=== PATIENT | female | born 1965 | race Caucasian/White ===

== ENCOUNTER 2016-09-07 11:19 | Emergency (ER) | payer MEDICARE, OTHER ==
[~2016-09-07] VITALS: Ht 175.3 cm; Wt 114.0 kg
[~2016-09-07 11:19] MED LIST: ALBU8.5H3 INH; APIX5TAB PO; ASPI325T4 PO; BACL10TA PO; CLON1TAB3 PO; CYAN100080 PO; DOCU100C PO; GABA-528 PO; IBUP-1542 PO; MAGN250T5 PO; MULT-761 PO; OXYB5TAB7 PO
[2016-09-07 11:25] VITALS: Ht 175.3 cm; Wt 114.0 kg
[2016-09-07] MEDS ORDERED: SILVER SULFADIAZINE 1% 25 GM CR TOP ONE (12:30)
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
[2016-09-07] MEDS ORDERED: SLSL1C50 TOP (12:33)
== END 2016-09-07 12:51 | disposition home or self-care (01) ==
LOC: FTE 11:19
DX: T22.211A Burn of second degree of right forearm, initial encounter (principal); J44.9 Chronic obstructive pulmonary disease, unspecified; F17.210 Nicotine dependence, cigarettes, uncomplicated; X19.XXXA Contact with other heat and hot substances, initial encounter; Y92.9 Unspecified place or not applicable; Z79.01 Long term (current) use of anticoagulants

== ENCOUNTER → 2018-05-11 | Emergency (ER) | END | disposition home or self-care (01) ==

== ENCOUNTER 2018-05-12 18:18 | Emergency (ER) | END 2018-05-12 22:30 | disposition home or self-care (01) ==

== ENCOUNTER 2018-10-23 08:12 | Inpatient (IN) | payer MEDICARE, OTHER ==
[~2018-10-23] VITALS: Ht 175.3 cm; Wt 91.0 kg
[~2018-10-23 08:12] MED LIST changes: -ALBU8.5H3 INH; +ALBU8.5H8 INH; -ASPI325T4 PO; -CLON1TAB3 PO; +DOCU-211 PO; -DOCU100C PO; +MAGN250T10 PO; -MAGN250T5 PO; +NALO25TA PO; +POLY17PO6 PO; +POTA20TA15 PO; +SAN30GM TOP; +SLSL1C50 TOP
[2018-10-23] MEDS ORDERED: SOD CHLORIDE 0.9% 500 ML IV STA (08:56)
[2018-10-23] MEDS ORDERED: LORAZEPAM 2 MG INJ IM ONE (09:00)
[2018-10-23] MEDS ORDERED: BISACODYL 10 MG SUPP PR SCH (09:00)
--- NOTE | 2018-10-23 09:06 | ERD ---
ER Documentation Chief Complaint Chief Complaint WOUND CHECK AND GENERALIZED PAIN WITH NO SIGNS OF FEVER. HPI 53-year-old woman brought in by EMS from home for agitation, anxiety and diffuse generalized pain. She does have a long history of anxiety syndrome and states she could not go to the wound clinic appointment she had because of anxiety. She has had recent left hip surgery and it seems has a history of chronic sacral pressure ulcers and was due wound clinic today but never went. She called 911 to transfer her here to the ER for evaluation. Patient denies fevers or chills, no chest pain or shortness of breath, no headache or blurry vision. Patient was transported here by EMS without further complications. ROS All systems reviewed and are negative except as per history of present illness. Medications Home Meds Active Scripts Silver Sulfadiazine* (Thermazene*) 1%-50 gm Cream..g., 1 APPLIC TOP DAILY, #1 JAR Prov:JONA STRICKLAND DO 09/07/16 Ibuprofen* (Motrin*) 600 Mg Tab, 600 MG PO Q8 for PAIN AND/OR INFLAMMATION, #30 TAB Prov:DANIEL JONES MD 03/09/16 Albuterol Sulfate* (Proair HFA*) 8.5 Gm Hfa.aer.ad, 2 PUFF INH Q4 for 14 Days, INH Prov:DEVANTE MORALES MD 03/31/15 Reported Medications Atorvastatin Calcium* (Atorvastatin Calcium*) 20 Mg Tablet, 20 MG PO QHS, #30 TAB 10/23/18 Polyethylene Glycol* (Miralax*) 17 Gm Powd.pack, 8.5 GM PO DAILY, #30 PACKET 05/11/18 Potassium Chloride* (K-Dur*) 20 Meq Tab.prt.sr, 20 MEQ PO DAILY, TAB.SA 05/11/18 Collagenase* (Santyl*) 30 Gm Oint..gm., 1 APPLIC TOP .SOILED PRN for SOILED, #1 TUB 05/11/18 Naloxegol Oxalate (Movantik) 25 Mg Tablet, 25 MG PO DAILY, TAB 05/11/18 Apixaban* (Eliquis*) 5 Mg Tablet, 5 MG PO BID, TAB 03/09/16 Baclofen* (Baclofen*) 10 Mg Tablet, 10 MG PO QID, TAB 07/28/14 Multivitamin (MULTI VITAMIN DAILY) 1 Each Tablet, 1 EACH PO DAILY 06/15/13 Magnesium Oxide (Magnesium) 250 Mg Tablet, 250 MG PO DAILY 06/15/13 Oxybutynin Chloride* (Ditropan*) 5 Mg Tablet, 5 MG PO QID 02/02/13 Cyanocobalamin* (Vitamin B-12*) 1,000 Mcg Tablet.sa, 1000 MCG PO DAILY 07/22/12 Docusate Sodium (Doc-Q-Lace) 100 Mg Capsule, 100 MG PO BID 07/22/12 Gabapentin* (Gabapentin*) 800 Mg Tablet, 800 MG PO QID 07/22/12 Allergies Allergies: Coded Allergies: No Known Drug Allergies (Unverified Allergy, Mild, 05/11/18) PMhx/Soc Chronic pain syndrome, anxiety, morbid obesity, recent left hip surgery, 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 History of Surgery: Yes (pacemaker, NECK, BLADDER) Anesthesia Reaction: No Hx Neurological Disorder: Yes (Paraplegic) Hx Respiratory Disorders: Yes (COPD) Hx Cardiac Disorders: Yes (irregular HR) Hx Psychiatric Problems: No Hx Miscellaneous Medical Probl: Yes (suprapubic cath 01/2013) Hx Alcohol Use: No Hx Substance Use: No Hx Tobacco Use: Yes Smoking Status: Never smoker FmHx Family History: No diabetes Physical Exam Vitals Vital Signs Date Temp Pulse Resp B/P (MAP) Pulse Ox O2 O2 Flow FiO2 Time Delivery Rate 10/23/18 97.8 75 20 165/60 95 08:22 (95) Physical Exam General: Well-developed, obese woman, moderately anxious, afebrile Head: Normocephalic, atraumatic. Eyes: Pupils equally reactive, EOM intact ENT: Moist mucous membranes Neck: Supple, no lymphadenopathy Respiratory: Lungs clear bilaterally, no distress Cardiovascular: RRR, no murmurs, rubs, or gallops Abdominal: Soft, non-tender, non-distended, no peritoneal signs SKIN: Surgical wound to the left lateral hip appears clean and dry with sutures in place, no skin induration or erythema, no purulent discharge. Patient refused further evaluation of her skin and back and gave me a tang "NO" when asked to evaluate her back. MSK: Incomplete quadriplegic, moving upper extremities at baseline Neurologic: Patient moves her upper extremities bilaterally, pupils equal round reactive to light, answering questions, following commands Psych: Moderately anxious, labile Result Diagram: 10/23/1892210/23/18922 Results 24 hrs Laboratory Tests Test 10/23/18 09:23 White Blood Count 7.5 10^3/ul Red Blood Count 5.19 10^6/ul Hemoglobin 12.7 g/dl Hematocrit 40.8 % Mean Corpuscular Volume 78.6 fl Mean Corpuscular Hemoglobin 24.5 pg Mean Corpuscular Hemoglobin Concent 31.1 g/dl Red Cell Distribution Width 15.7 % Platelet Count 253 10^3/UL Mean Platelet Volume 11.0 fl Immature Granulocytes % 0.400 % Neutrophils % 80.1 % Lymphocytes % 14.5 % Monocytes % 4.3 % Eosinophils % 0.3 % Basophils % 0.4 % Nucleated Red Blood Cells % 0.0 /100WBC Immature Granulocytes # 0.030 10^3/ul Neutrophils # 6.0 10^3/ul Lymphocytes # 1.1 10^3/ul Monocytes # 0.3 10^3/ul Eosinophils # 0.0 10^3/ul Basophils # 0.0 10^3/ul Nucleated Red Blood Cells # 0.0 10^3/ul Urine Color YELLOW Urine Clarity SLIGHTLY CLOUDY Urine pH 8.0 Urine Specific [place] 1.010 Urine Ketones NEGATIVE mg/dL Urine Nitrite POSITIVE mg/dL Urine Bilirubin NEGATIVE mg/dL Urine Urobilinogen NEGATIVE mg/dL Urine Leukocyte Esterase 3+ Rios/ul Urine Microscopic RBC 4 /HPF Urine Microscopic WBC 97 /HPF Urine Squamous Epithelial Cells FEW /HPF Urine Bacteria FEW /HPF Urine Hemoglobin 1+ mg/dL Urine Glucose NEGATIVE mg/dL Urine Total Protein NEGATIVE mg/dl Sodium Level 143 mmol/L Potassium Level 3.6 mmol/L Chloride Level 102 mmol/L Carbon Dioxide Level 28 mmol/L Anion Gap 13 Blood Urea Nitrogen 7 mg/dl Creatinine 0.43 mg/dl Est Glomerular Filtrat Rate mL/min > 60 mL/min Glucose Level 97 mg/dl Calcium Level 9.6 mg/dl Total Bilirubin 0.1 mg/dl Direct Bilirubin 0.00 mg/dl Indirect Bilirubin 0.1 mg/dl Aspartate Amino Transf (AST/SGOT) 24 IU/L Alanine Aminotransferase (ALT/SGPT) 19 IU/L Alkaline Phosphatase 125 IU/L Troponin I 0.012 ng/ml Total Protein 7.3 g/dl Albumin 3.8 g/dl Globulin 3.50 g/dl Albumin/Globulin Ratio 1.08 Lipase 153 U/L Current Medications Medications Dose Sig/Amanuel Start Time Status Last (Trade) Ordered Route PRN Stop Time Admin Dose Reason Admin Sodium 500 ml @ Q1H STAT 10/23/18 DC 10/23/18 Chloride 500 mls/hr IV 08:56 09:03 10/23/18 09:55 Lorazepam 2 mg ONCE ONCE 10/23/18 DC 10/23/18 (Ativan) IM 09:00 09:02 10/23/18 09:01 Cefepime HCl 50 ml @ ONCE ONCE 10/23/18 DC 10/23/18 100 mls/hr IVPB 10:00 10:10 10/23/18 10:29 Procedures/MDM IV line was established patient was placed on manager monitoring rhythm strip revealed a sinus rhythm at about 80 bpm with upright P and T waves. Patient was afebrile I administered lorazepam 2 mg IM x1 for acute anxiety, and 500 cc normal saline IV for dehydration. CBC and electrolytes were unremarkable, troponin negative, liver function tests normal, urine analysis positive for infection. I administered cefepime 1 g IV for UTI. Patient will be admitted to [facility] for continued medical management, antibiotic, and wound evaluation. Departure Diagnosis: Primary Impression: Acute UTI Additional Impressions: Acute anxiety Decubitus skin ulcer Pressure injury location: lower back Pressure injury stage: unspecified pressure injury stage Laterality: left Qualified Codes: L89.149 - Pressure ulcer of left lower back, unspecified stage Condition: DANIEL Briones MD Oct 23, 2018 09:06
[2018-10-23] MEDS ORDERED: ATOR20TA38 PO (09:24)
[2018-10-23] MEDS ORDERED: CEFEPIME 1GM/50 ML (PMX) 50 ML IVPB ONE (10:00)
[2018-10-23 18:03] VITALS: Ht 175.3 cm; Wt 91.0 kg
[2018-10-23 18:35] VITALS: BP 170/81; PULSE 93; RESP 17
[2018-10-23] MEDS ORDERED: LORAZEPAM 2 MG INJ IV PRN (19:00)
[2018-10-23] MEDS ORDERED: ACETAMINOPHEN 325 MG TAB PO PRN (19:00)
[2018-10-23 20:23] VITALS: BP 159/79; PULSE 70; RESP 18
[2018-10-23] MEDS: HYDROmorphONE 0.5 MG/0.5 ML SYG IV PRN (20:53)
[2018-10-23] MEDS ORDERED: NON-FORMULARY/PATIENT OWN MED (Naloxegol Oxalate (Movantik) 25 MG) PO SCH (21:00)
[2018-10-23] MEDS ORDERED: COLLAGENASE 30 GM TUBE TOP PRN (21:00)
[2018-10-23] MEDS: MEROPENEM 1 GM/50ML(PMX) 50 ML IVPB SCH (21:55)
[2018-10-23] MEDS: MAGNESIUM OXIDE 400 MG TAB PO SCH (21:56)
[2018-10-23] MEDS: ATORVASTATIN 20 MG TAB PO SCH (21:56)
[2018-10-23] MEDS: GABAPENTIN 400 MG CAP PO SCH (21:56)
[2018-10-23] MEDS: BACLOFEN 10 MG TAB PO SCH (21:56)
[2018-10-23] MEDS: DOCUSATE SODIUM 100 MG CAP PO SCH (21:57)
[2018-10-23] MEDS: IBUPROFEN 600 MG TAB PO SCH (21:57)
[2018-10-23] MEDS: APIXABAN 5 MG TABLET PO SCH (21:58)
[2018-10-23] MEDS: POTASSIUM CHLORIDE 20 MEQ POWDER FOR ORAL SOLN PO SCH (21:58)
[2018-10-23] MEDS ORDERED: POLYETHYLENE GLYCOL 17 GM PACKET PO SCH (22:00)
[2018-10-23] MEDS: OXYBUTYNIN 5 MG TAB PO SCH (22:42)
[2018-10-23] MEDS: HYDROCODONE/APAP (5/325) TAB PO PRN (22:43)
[2018-10-23] MEDS: MULTIVITAMINS THERAPEUTIC TAB PO SCH (22:43)
[2018-10-23] MEDS: QUETIAPINE 100 MG TAB PO SCH (22:44)
[2018-10-23] MEDS: CYANOCOBALAMIN 500 MCG TAB PO SCH (22:44)
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
[2018-10-24 02:01] VITALS: BP 126/81; PULSE 70; RESP 18
[2018-10-24] MEDS: MEROPENEM 1 GM/50ML(PMX) 50 ML IVPB SCH ×3 (05:42→21:47)
[2018-10-24] MEDS: IBUPROFEN 600 MG TAB PO SCH ×3 (05:44→21:50)
[2018-10-24 08:14] VITALS: BP 184/113; PULSE 70; RESP 18
[2018-10-24] MEDS: MULTIVITAMINS THERAPEUTIC TAB PO SCH (08:35)
[2018-10-24] MEDS: MAGNESIUM OXIDE 400 MG TAB PO SCH (08:35)
[2018-10-24] MEDS: APIXABAN 5 MG TABLET PO SCH ×2 (08:35→20:50)
[2018-10-24] MEDS: CYANOCOBALAMIN 500 MCG TAB PO SCH (08:35)
[2018-10-24] MEDS: DOCUSATE SODIUM 100 MG CAP PO SCH ×2 (08:35→20:50)
[2018-10-24] MEDS: BACLOFEN 10 MG TAB PO SCH ×4 (08:35→21:46)
[2018-10-24] MEDS: GABAPENTIN 400 MG CAP PO SCH ×4 (08:36→21:46)
[2018-10-24] MEDS: POTASSIUM CHLORIDE 20 MEQ POWDER FOR ORAL SOLN PO SCH (08:39)
[2018-10-24] MEDS: OXYBUTYNIN 5 MG TAB PO SCH ×3 (08:39→20:49)
[2018-10-24] MEDS: SILVER SULFADIAZINE 1% 25 GM CR TOP SCH (08:41)
[2018-10-24] MEDS: HYDROmorphONE 0.5 MG/0.5 ML SYG IV PRN ×3 (08:44→20:51)
[2018-10-24] MEDS ORDERED: ENOXAPARIN 40 MG/0.4 ML SYG SC SCH (09:00)
[2018-10-24] MEDS ORDERED: hydrALAzine 20 MG INJ IV PRN (09:30)
[2018-10-24 09:53] VITALS: BP 125/85; PULSE 71
[2018-10-24] MEDS: HYDROCODONE/APAP (5/325) TAB PO PRN ×2 (11:23→22:43)
[2018-10-24] MEDS: POLYETHYLENE GLYCOL 17 GM PACKET PO SCH ×3 (14:00→21:00)
[2018-10-24] MEDS: METOPROLOL 50 MG TAB PO SCH ×2 (14:17→20:50)
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
[2018-10-24] MEDS ORDERED: BISACODYL 10 MG SUPP PR SCH (19:00)
[2018-10-24 19:36] VITALS: BP 127/82; PULSE 70; RESP 16
[2018-10-24] MEDS: ATORVASTATIN 20 MG TAB PO SCH (20:50)
[2018-10-24] MEDS: QUETIAPINE 100 MG TAB PO SCH (22:41)
[2018-10-25 01:46] VITALS: BP 123/69; PULSE 70; RESP 16
[2018-10-25] MEDS: IBUPROFEN 600 MG TAB PO SCH ×3 (05:41→22:00)
[2018-10-25] MEDS: MEROPENEM 1 GM/50ML(PMX) 50 ML IVPB SCH ×3 (05:42→22:19)
[2018-10-25 07:55] VITALS: BP 129/86; PULSE 70; RESP 18
[2018-10-25] MEDS: MULTIVITAMINS THERAPEUTIC TAB PO SCH (08:53)
[2018-10-25] MEDS: DOCUSATE SODIUM 100 MG CAP PO SCH ×2 (08:53→20:23)
[2018-10-25] MEDS: MAGNESIUM OXIDE 400 MG TAB PO SCH (08:53)
[2018-10-25] MEDS: HYDROmorphONE 0.5 MG/0.5 ML SYG IV PRN ×3 (08:53→22:04)
[2018-10-25] MEDS: POLYETHYLENE GLYCOL 17 GM PACKET PO SCH ×4 (08:53→20:28)
[2018-10-25] MEDS: POTASSIUM CHLORIDE 20 MEQ POWDER FOR ORAL SOLN PO SCH (08:53)
[2018-10-25] MEDS: CYANOCOBALAMIN 500 MCG TAB PO SCH (08:53)
[2018-10-25] MEDS: APIXABAN 5 MG TABLET PO SCH ×2 (08:54→20:24)
[2018-10-25] MEDS: OXYBUTYNIN 5 MG TAB PO SCH ×3 (08:54→20:23)
[2018-10-25] MEDS: BACLOFEN 10 MG TAB PO SCH ×4 (08:54→20:24)
[2018-10-25] MEDS: GABAPENTIN 400 MG CAP PO SCH ×4 (08:54→20:23)
[2018-10-25] MEDS: METOPROLOL 50 MG TAB PO SCH ×2 (08:55→20:26)
[2018-10-25] MEDS: SILVER SULFADIAZINE 1% 25 GM CR TOP SCH (09:00)
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
[2018-10-25] MEDS: HYDROCODONE/APAP (5/325) TAB PO PRN ×2 (10:14→20:24)
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
[2018-10-25 14:26] VITALS: BP 146/81; PULSE 70; RESP 18
--- NOTE | 2018-10-25 16:31 | CONS ---
DATE OF ADMISSION: 10/23/2018 DATE OF CONSULTATION: 10/25/2018 TYPE OF CONSULTATION: Infectious disease. REASON FOR CONSULTATION: Antibiotic management. HISTORY OF PRESENT ILLNESS: Hallie Cabral is a 53-year-old female who was brought in by EMS from [facility] for agitation and diffuse generalized pain. The patient has a long history of anxiety disorder a nd cannot go to the wound clinic appointment that she had because of anxiety. She has had recent lef t hip surgery and history of chronic sacral pressure ulcers and was scheduled for the wound clinic bu t never went. The patient denies fever or chills. Her past surgical problems include status post pa lawrence. She had neck surgery and bladder surgery. 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 The patient is bed-bound. She has arthritis, COPD and history of deep vein th rombophlebitis. She also has an irregular heart rate. As noted, the patient is paraplegic. She has suprapubic catheter that was placed in 01/2013. PAST MEDICAL HISTORY: Operations as outlined. FAMILY HISTORY: Noncontributory. SOCIAL HISTORY: She is not an everyday smoker. She does not drink or abuse drugs. ALLERGIES: NONE TO PENICILLIN, SULFA OR FOODS. MEDICATIONS: Per chart. REVIEW OF SYSTEMS: Noncontributory. LABORATORY DATA: On admission, white count was 7.5, H and H of 12.7 and 40.8, platelet count 253,000 . BUN and creatinine is 7/0.43. HOSPITAL COURSE AND PLAN: She has a suprapubic catheter. She has probable urinary tract infection a nd is currently on meropenem. She is on Eliquis. She is on Ditropan. PHYSICAL EXAMINATION: GENERAL: She is awake, responsive, in no acute distress. VITAL SIGNS: Stable. She is afebrile. SKIN: Without generalized rash. HEENT: Within normal limits. NECK: Supple. LYMPH NODES: None palpable. CHEST: Decreased breath sounds at the bases. HEART: Irregularly irregular rhythm. ABDOMEN: Soft and nontender. GENITOURINARY: She has suprapubic catheter. EXTREMITIES: She has bilateral edema. Bilateral distal lower extremities have dressings. She has a left foot wound. The patient has intact sutures. No evidence of any surrounding cellulitis or infe ction involving the left hip or the left foot. RECTAL AND GENITAL: Deferred. NEUROLOGICAL: The patient is essentially quadriplegic. She has muscle atrophy in both upper and low er extremities. IMPRESSION AND PLAN: Hallie Cabral is a 53-year-old female with numerous problems and currently, s he is being treated for urinary tract infection. We are going to await the urine culture. I will di ctate my findings to Dr. Jean and to nurse practitioner, Nick. Dictated By: JUAN HURTADO MD, JD/YVETTE Conf#: [id number] DID#: [id number] CC: JOZEF JEAN MD; MICHAEL MELCHOR NP;*[facility]*
[2018-10-25 20:16] VITALS: BP 87/64; PULSE 70; RESP 17
[2018-10-25] MEDS: QUETIAPINE 100 MG TAB PO SCH (20:23)
[2018-10-25] MEDS: ATORVASTATIN 20 MG TAB PO SCH (20:24)
[2018-10-26 02:06] VITALS: BP 132/77; PULSE 70; RESP 18
[2018-10-26] MEDS: MEROPENEM 1 GM/50ML(PMX) 50 ML IVPB SCH (05:45)
[2018-10-26] MEDS: HYDROmorphONE 0.5 MG/0.5 ML SYG IV PRN ×3 (05:55→16:51)
[2018-10-26] MEDS: IBUPROFEN 600 MG TAB PO SCH ×2 (06:00→12:50)
[2018-10-26] MEDS: MAGNESIUM OXIDE 400 MG TAB PO SCH (09:34)
[2018-10-26] MEDS: GABAPENTIN 400 MG CAP PO SCH ×3 (09:34→16:51)
[2018-10-26] MEDS: DOCUSATE SODIUM 100 MG CAP PO SCH (09:35)
[2018-10-26] MEDS: OXYBUTYNIN 5 MG TAB PO SCH ×2 (09:35→12:50)
[2018-10-26] MEDS: BACLOFEN 10 MG TAB PO SCH ×3 (09:35→16:51)
[2018-10-26] MEDS: APIXABAN 5 MG TABLET PO SCH (09:35)
[2018-10-26] MEDS: POTASSIUM CHLORIDE 20 MEQ POWDER FOR ORAL SOLN PO SCH (09:35)
[2018-10-26] MEDS: CYANOCOBALAMIN 500 MCG TAB PO SCH (09:36)
[2018-10-26] MEDS: POLYETHYLENE GLYCOL 17 GM PACKET PO SCH ×2 (09:36→12:50)
[2018-10-26] MEDS: SILVER SULFADIAZINE 1% 25 GM CR TOP SCH (09:37)
[2018-10-26] MEDS: METOPROLOL 50 MG TAB PO SCH (09:37)
[2018-10-26] MEDS: MULTIVITAMINS THERAPEUTIC TAB PO SCH (09:37)
[2018-10-26] MEDS: HYDROCODONE/APAP (5/325) TAB PO PRN (09:53)
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
[2018-10-26] MEDS ORDERED: AMIKACIN 500 MG in DEXTROSE 5% 100 ML IVPB STA (11:54)
[2018-10-26 14:30] VITALS: BP 140/79; PULSE 74; RESP 18
--- NOTE | 2018-10-26 14:40 | PDOCDIS ---
Discharge Instructions ACTIVITY: [id number] Activity Restrictions: [id number] Slowly Increase Activity Rest between Activity Avoid heavy lifting Do not operate Machinery Do not operate Power Tool Avoid Heavy Housework [id number] Bathing Restrictions: [id number] Sponge Bath FOLLOW UP/APPOINTMENTS Follow-up Plan Fu with PMD x 1 week Call 911 or go to the nearest hospital if symptoms get worse-patient verbalized understanding discharge instructions. staff ANDRÉS TAMAYO Oct 26, 2018 14:40
--- NOTE | 2018-10-26 14:43 | DS ---
Date/Time of Note Date/Time of Note DATE: 10/26/18 TIME: 14:43 Discharge Summary Admission/Discharge Info Admit Date/Time Oct 25, 2018 at 14:20 Discharge Date/Time Home Meds Active Scripts Silver Sulfadiazine* (Thermazene*) 1%-50 gm Cream..g., 1 APPLIC TOP DAILY, #1 JAR Prov:JONA STRICKLAND DO 09/07/16 Ibuprofen* (Motrin*) 600 Mg Tab, 600 MG PO Q8 for PAIN AND/OR INFLAMMATION, #30 TAB Prov:DANIEL JONES MD 03/09/16 Albuterol Sulfate* (Proair HFA*) 8.5 Gm Hfa.aer.ad, 2 PUFF INH Q4 for 14 Days, INH Prov:DEVANTE MORALES MD 03/31/15 Reported Medications Atorvastatin Calcium* (Atorvastatin Calcium*) 20 Mg Tablet, 20 MG PO QHS, #30 TAB 10/23/18 Polyethylene Glycol* (Miralax*) 17 Gm Powd.pack, 8.5 GM PO DAILY, #30 PACKET 05/11/18 Potassium Chloride* (K-Dur*) 20 Meq Tab.prt.sr, 20 MEQ PO DAILY, TAB.SA 05/11/18 Collagenase* (Santyl*) 30 Gm Oint..gm., 1 APPLIC TOP .SOILED PRN for SOILED, #1 TUB 05/11/18 Naloxegol Oxalate (Movantik) 25 Mg Tablet, 25 MG PO DAILY, TAB 05/11/18 Apixaban* (Eliquis*) 5 Mg Tablet, 5 MG PO BID, TAB 03/09/16 Baclofen* (Baclofen*) 10 Mg Tablet, 10 MG PO QID, TAB 07/28/14 Multivitamin (MULTI VITAMIN DAILY) 1 Each Tablet, 1 EACH PO DAILY 06/15/13 Magnesium Oxide (Magnesium) 250 Mg Tablet, 250 MG PO DAILY 06/15/13 Oxybutynin Chloride* (Ditropan*) 5 Mg Tablet, 5 MG PO QID 02/02/13 Cyanocobalamin* (Vitamin B-12*) 1,000 Mcg Tablet.sa, 1000 MCG PO DAILY 07/22/12 Docusate Sodium (Doc-Q-Lace) 100 Mg Capsule, 100 MG PO BID 07/22/12 Gabapentin* (Gabapentin*) 800 Mg Tablet, 800 MG PO QID 07/22/12 Follow-up Plan Fu with PMD x 1 week Call 911 or go to the nearest hospital if symptoms get worse-patient verbalized understanding discharge instructions. dw staff Primary Care Provider Not On Staff Doctor ANDRÉS TAMAYO Oct 26, 2018 14:43
== END 2018-10-26 19:20 | disposition home or self-care (01) | DRG 592 ==
LOC: E/R 08:12 → 2NE 10:28 → OBSVTOIN 10-25 14:20
PROVIDERS: ADMIT Internal Medicine; ATTEND Internal Medicine
DX: L89.149 Pressure ulcer of left lower back, unspecified stage (principal); G82.50 Quadriplegia, unspecified; N39.0 Urinary tract infection, site not specified; F41.9 Anxiety disorder, unspecified; R45.1 Restlessness and agitation; G89.4 Chronic pain syndrome; E86.0 Dehydration; Z79.02 Long term (current) use of antithrombotics/antiplatelets; N31.9 Neuromuscular dysfunction of bladder, unspecified; Z93.50 Unspecified cystostomy status; Z86.718 Personal history of other venous thrombosis and embolism; N32.89 Other specified disorders of bladder
CPT/HCPCS: 36415; 80048; 80053; 81001; 83690; 84484; 85025; 87040; 87086; 96372; 96374; G0378; J0278; J0692; J1170; J2060; J2185; J7040

== ENCOUNTER 2018-11-01 02:59 | Emergency (ER) | payer MEDICARE, OTHER ==
[~2018-11-01] VITALS: Ht 176.5 cm; Wt 100.0 kg
[~2018-11-01 02:59] MED LIST changes: +ATOR20TA38 PO
[2018-11-01 03:10] VITALS: Ht 176.5 cm; Wt 100.0 kg
--- NOTE | 2018-11-01 03:17 | ERD ---
ER Documentation Chief Complaint Chief Complaint BIB [id number],from home,c/o back pain,out of morphine pills,hx paraplegia HPI The patient is a 53-year-old female, presenting to the ER wants a pain shot. He ran out of her morphine and Dilaudid for the last 3 days and unable to contact her pain management doctor. He denies fever, chills, neck pain, chest pain, dyspnea, abdominal pain, vomiting, suicidal/homicidal ideation, visual/auditory hallucination. She smokes, nonambulatory Past medical history: Paraplegia, dyslipidemia, CAD, depression, anxiety, history of left hip and sacral pressure ulcer Past surgical history: Pacemaker, left hip arthroscopy, neck and back surgery ROS All systems reviewed and are negative except as per history of present illness. Medications Home Meds Discontinued Reported Medications Atorvastatin Calcium* (Atorvastatin Calcium*) 20 Mg Tablet, 20 MG PO QHS, #30 TAB 10/23/18 Polyethylene Glycol* (Miralax*) 17 Gm Powd.pack, 8.5 GM PO DAILY, #30 PACKET 05/11/18 Potassium Chloride* (K-Dur*) 20 Meq Tab.prt.sr, 20 MEQ PO DAILY, TAB.SA 05/11/18 Collagenase* (Santyl*) 30 Gm Oint..gm., 1 APPLIC TOP .SOILED PRN for SOILED, #1 TUB 05/11/18 Naloxegol Oxalate (Movantik) 25 Mg Tablet, 25 MG PO DAILY, TAB 05/11/18 Apixaban* (Eliquis*) 5 Mg Tablet, 5 MG PO BID, TAB 03/09/16 Baclofen* (Baclofen*) 10 Mg Tablet, 10 MG PO QID, TAB 07/28/14 Multivitamin (MULTI VITAMIN DAILY) 1 Each Tablet, 1 EACH PO DAILY 06/15/13 Magnesium Oxide (Magnesium) 250 Mg Tablet, 250 MG PO DAILY 06/15/13 Oxybutynin Chloride* (Ditropan*) 5 Mg Tablet, 5 MG PO QID 02/02/13 Cyanocobalamin* (Vitamin B-12*) 1,000 Mcg Tablet.sa, 1000 MCG PO DAILY 07/22/12 Docusate Sodium (Doc-Q-Lace) 100 Mg Capsule, 100 MG PO BID 07/22/12 Gabapentin* (Gabapentin*) 800 Mg Tablet, 800 MG PO QID 07/22/12 Discontinued Scripts Silver Sulfadiazine* (Thermazene*) 1%-50 gm Cream..g., 1 APPLIC TOP DAILY, #1 JAR Prov:JONA STRICKLAND 09/07/16 Ibuprofen* (Motrin*) 600 Mg Tab, 600 MG PO Q8 for PAIN AND/OR INFLAMMATION, #30 TAB Prov:DANIEL JONES MD 03/09/16 Albuterol Sulfate* (Proair HFA*) 8.5 Gm Hfa.aer.ad, 2 PUFF INH Q4 for 14 Days, INH Prov:DEVANTE MORALES MD 03/31/15 Allergies Allergies: Coded Allergies: No Known Allergy (Unverified , 11/01/18) PMhx/Soc History of Surgery: Yes (neck, bed sore bilateral heel, plastic surgery ,) Anesthesia Reaction: No Hx Neurological Disorder: No Hx Respiratory Disorders: Yes Hx Cardiac Disorders: Yes (peace maker left chest) Hx Psychiatric Problems: Yes (depression) Hx Miscellaneous Medical Probl: No Hx Alcohol Use: No Hx Substance Use: No Hx Tobacco Use: Yes Physical Exam Vitals Vital Signs Date Temp Pulse Resp B/P (MAP) Pulse Ox O2 O2 Flow FiO2 Time Delivery Rate 11/01/18 98.1 80 18 152/84 96 03:10 (106) Physical Exam Const: No acute distress. Head: Atraumatic. Eyes: Normal Conjunctiva. ENT: Normal External Ears, Nose and Mouth. Neck: Full range of motion. No meningismus. Resp: Clear to auscultation bilaterally. Cardio: Regular rate and rhythm. Abd: Soft, non distended, normal bowel sounds, non tender. Left-sided abdomen with the pressure wound that has recently dressed Skin: No petechiae or rashes. Back: No midline or flank tenderness. Ext: No cyanosis, or edema. Neur: Awake and alert. paraplegic Psych: Anxious Results 24 hrs Current Medications Medications Dose Sig/Amanuel Start Time Status Last (Trade) Ordered Route PRN Stop Time Admin Dose Reason Admin 1 mg ONCE STAT 11/01/18 DC 11/01/18 Hydromorphone IM 03:44 04:06 HCl 11/01/18 03:45 (Dilaudid) Procedures/MDM MEDICAL MAKING DECISION: The patient is a 53-year-old female, presenting with chronic pain syndrome, was treated with Dilaudid 1 mg IM for pain and advised her to follow her doctor in the morning for medication refill The differential diagnoses considered include but are not limited to medication withdrawal, anxiety attack, panic attack Departure Diagnosis: Primary Impression: Chronic pain Condition: Good Comments She was advised to follow-up with her pain management DrDorina in the morning for medication refill and return if any concern The patient's blood pressure was elevated (>120/80) but appears stable without evidence of hypertension emergency or urgency. The patient was counseled about the risks of hypertension and urged to pursue outpatient monitoring and therapy within a week with their primary care physician. I discussed the findings with the patient. I advised the patient to follow-up with the primary physician in about 2-3 days, sooner if needed and return if any concern. Disclaimer: Inadvertent spelling and grammatical errors are likely due to EHR/dictation software use and do not reflect on the overall quality of patient care. Also, please note that the electronic time recorded on this note does not necessarily reflect the actual time of the patient encounter. EVELIO HARE MD Nov 01, 2018 03:17
[2018-11-01] MEDS ORDERED: HYDROmorphONE 2 MG/ML SYG IM STA (03:44)
[2018-11-01 09:00] VITALS: BP 122/87; PULSE 87; RESP 16
== END 2018-11-01 09:01 | disposition home or self-care (01) ==
LOC: E/R 02:59
DX: M54.9 Dorsalgia, unspecified (principal); I25.10 Atherosclerotic heart disease of native coronary artery without angina pectoris; R40.2142 Coma scale, eyes open, spontaneous, at arrival to emergency department; R40.2252 Coma scale, best verbal response, oriented, at arrival to emergency department; R40.2362 Coma scale, best motor response, obeys commands, at arrival to emergency department; Z95.0 Presence of cardiac pacemaker; Z87.891 Personal history of nicotine dependence
CPT/HCPCS: 96372; 99284; J1170